=== PATIENT | female | born 1970 | race American Indian/Alaskan Native ===

== ENCOUNTER 2020-02-04 05:45 | Day surgery (SDC) | payer OTHER ==
[2020-01-31 10:45] LABS: Hemoglobin 11.7 gm/dl (11.8-15.2); Mean Corpuscular HGB Conc 33 % (32-34); Mean Corpuscular Volume 83 fl (84-94); Platelet Count 277 K/mm3 (140-440); Red Blood Count 4.32 M/mm3 (3.65-5.03)
[2020-01-31 10:58] LABS: Blood Urea Nitrogen 10 mg/dL (9-20); Calcium 9.2 mg/dL (8.4-10.2); Hemolysis Index 1
[2020-01-31 11:00] LABS: BUN/Creatinine Ratio 17
[2020-02-04] MEDS ORDERED: SCOPOLAMINE TRANSDERMAL PATCH 72 HR TD NR (06:00)
[2020-02-04] MEDS ORDERED: MIDAZOLAM 2 MG/2 ML INJ IV NR (06:00)
[2020-02-04] MEDS ORDERED: ACETAMINOPHEN 500 MG TAB PO SCH (06:00)
[2020-02-04] MEDS ORDERED: LACTATED RINGERS 1,000 ML IV SCH (06:00)
[2020-02-04] MEDS ORDERED: CELECOXIB 200 MG CAP PO NR (06:00)
[2020-02-04] MEDS ORDERED: GABAPENTIN 300 MG CAP PO NR (06:00)
[2020-02-04] MEDS ORDERED: GABAPENTIN 300 MG CAP ONE (06:19)
[2020-02-04] MEDS ORDERED: CELECOXIB 200 MG CAP ONE (06:19)
[2020-02-04] MEDS ORDERED: BACTERIOSTATIC SODIUM CHLORIDE 0.9% 30 ML VIAL INFILTRATI ONE ×2 (06:19→06:20)
[2020-02-04] MEDS ORDERED: fentaNYL 100 MCG/2 ML INJ ONE ×2 (06:19→07:14)
[2020-02-04] MEDS ORDERED: MIDAZOLAM 2 MG/2 ML INJ ONE (06:19)
[2020-02-04] MEDS ORDERED: ACETAMINOPHEN 500 MG TAB ONE (06:19)
[2020-02-04] MEDS ORDERED: cloNIDine/PF 1,000 MCG/10 ML VIAL EP ONE ×2 (06:19→07:13)
[2020-02-04] MEDS ORDERED: LACTATED RINGERS 1000 ML IV SOLN ONE (06:19)
[2020-02-04] MEDS ORDERED: SCOPOLAMINE TRANSDERMAL PATCH 72 HR TD ONE (06:19)
[2020-02-04] MEDS ORDERED: VANCOMYCIN/NS 1 GM/250 ML 1 GM/250 ML BAG IV NR (07:00)
[2020-02-04] MEDS ORDERED: LIDOCAINE (1%) 10 MG/1 ML VIAL 20 ML MDV ONE ×2 (07:04→07:29)
[2020-02-04] MEDS ORDERED: dexAMETHasone 4 MG/ML VIAL ONE (07:04)
[2020-02-04] MEDS ORDERED: BUPIVACAINE-EPINEPHRINE/PF 0.5%-1:200,000 (30 ML) VIAL INFILTRATI ONE (07:04)
[2020-02-04] MEDS ORDERED: BUPIVACAINE/PF (0.5%) 5 MG/1 ML 30 ML VIAL INFILTRATI ONE (07:29)
[2020-02-04] MEDS ORDERED: ROCURONIUM 50 MG/5 ML INJ IV ONE ×2 (07:34→10:38)
[2020-02-04] MEDS ORDERED: LIDOCAINE MPF (2%) 20 MG/1 ML VIAL 5 ML ONE (07:34)
[2020-02-04] MEDS ORDERED: dexAMETHasone 20 MG/5 ML VIAL ONE (07:34)
[2020-02-04] MEDS ORDERED: propofoL 200 MG/20 ML VIAL IV ONE (07:34)
[2020-02-04] MEDS ORDERED: ONDANSETRON 4 MG/2 ML INJ ONE (07:34)
[2020-02-04] MEDS ORDERED: HYDROmorphone 1 MG/1 ML INJ ONE ×2 (07:34→11:58)
[2020-02-04] MEDS ORDERED: WATER FOR IRRIG STERILE 2000 ML IR ONE (09:00)
[2020-02-04] MEDS ORDERED: PHENYLEPHRINE/NS 1,000 MCG/10 ML SYRINGE (OR USE) IV ONE (09:02)
[2020-02-04] MEDS ORDERED: NS IV ONE (10:00)
[2020-02-04] MEDS ORDERED: VANCOMYCIN IV ONE (10:00)
[2020-02-04] MEDS ORDERED: LACTATED RINGERS 1,000 ML ONE (10:43)
[2020-02-04] MEDS ORDERED: NEOSTIGMINE 10MG/10 ML INJ MDV ONE (11:11)
[2020-02-04] MEDS ORDERED: GLYCOPYRROLATE 0.4 MG/2 ML INJ ONE (11:11)
[2020-02-04] MEDS ORDERED: KETOROLAC 30 MG/1 ML INJ ONE (11:54)
[2020-02-04] MEDS ORDERED: oxyCODONE /ACETAMINOPHEN 5-325MG TAB ONE (13:07)
[2020-02-05 15:39] VITALS: BP 136/72
--- NOTE | 2020-02-08 23:49 | Operative Report ---
PREOPERATIVE DIAGNOSIS: Ventral hernia. POSTOPERATIVE DIAGNOSIS: Ventral hernia and umbilical hernia. PROCEDURES: Robotic-assisted lysis of adhesions, repair of ventral and umbilical hernia with mesh. SURGEON: Domenica Mcdonald DO MANAGER OF CASE: MARIA L Niño ANESTHESIA: General endotracheal anesthesia, TAP block. FINDINGS: 1. A 4 x 4 cm epigastric hernia with incarcerated fat. 2. A 1 cm umbilical hernia with incarcerated fat. 3. Total hernia dimensions - 12 cm cephalad to caudad x 4 cm in width repaired with 20 x [address] composite mesh. ESTIMATED BLOOD LOSS: 5 mL. SPECIMEN: Hernia sac and fat. COMPLICATIONS: None. DISPOSITION: Stable to PACU. HISTORY OF PRESENT ILLNESS AND INDICATION: The patient is a 49-year-old female who presented to the surgery clinic with complaints of a bulge in her abdomen above her umbilicus, which was painful at times and limiting her everyday activity. The patient was sent to Cardiology for preoperative risk assessment and evaluation. She underwent the appropriate testing and was cleared for surgery from the Cardiology standpoint. It was recommended that the patient undergo robotic-assisted laparoscopic ventral hernia repair with mesh. All risks, benefits and alternatives to surgery were discussed with the patient and questions answered. Consent was obtained. PROCEDURE IN DETAIL: The patient was identified in the preoperative area and taken back to the operating room and placed on the operating table in supine position. After anesthesia was induced, both arms were tucked and all bony prominences were padded appropriately. The patient was placed in slight reverse jackknife position to extend the torso. The abdomen was prepped and draped in the usual sterile fashion. Timeout was performed. A elsa incision was made in the left upper quadrant through which a Veress needle was inserted. The Veress needle positioning was confirmed using the saline drop test and the abdomen insufflated to 15 mmHg without incident. Once the abdomen was insufflated, a 5 mm right upper quadrant optiview trocar was placed under direct visualization. The abdomen was inspected and there was no underlying injury to any of the abdominal structures. The Veress needle was removed. There were omental adhesions to the anterior abdominal wall in the midline. The patient was then tilted to the left. An additional 12 mm balloon trocar was placed in the right lateral abdomen and the 8 mm robotic trocar in the right lower quadrant. The 5 mm right upper quadrant trocar was removed and replaced with an 8 mm robotic trocar under direct visualization. The robot was then docked. The surgeon was transferred to the console. A fenestrated bipolar grasper was placed in arm #2 and a monopolar scissor in arm #1. I first started by taking down the falciform ligament. This was ligated using the fenestrated bipolar and then dissected from the anterior abdominal wall with a monopolar scissor. The epigastric ventral hernia was seen and that did contain incarcerated preperitoneal fat. A smaller umbilical hernia was also noted. I attempted to create a preperitoneal flap. The peritoneum was scored to the right of the epigastric ventral hernia. Using the monopolar scissors, a preperitoneal flap created. The peritoneum was extremely thin and scarred to the muscle and therefore this could not be completed. Therefore, it was abandoned. I then turned my attention to reducing the fat incarcerated in the hernia. A small incision was made in the peritoneum and the preperitoneal fat was grasped and reduced using a combination of blunt dissection and electrocautery. In this way, the hernia sac was also identified and circumferentially dissected free from the surrounding fascia. The majority of the hernia sac was able to be reduced. A small portion of the sac was scarred to the skin and therefore was transected. The redundant peritoneum and fat was then dissected off the anterior abdominal wall and later removed as a specimen. I then turned my attention to the umbilical hernia. A small amount of preperitoneal fat was also dissected from the hernia and later removed as a specimen. Once incarcerated fat was dissected from the hernias, the total hernia area measured 12 cm in length and 4 cm in width. Therefore, it was decided to use a 20 x [address] composite mesh to repair the defect. Approximately 1 cm was cut from either side of the mesh reducing it with the 13 cm from 15cm. The composite mesh along with suture material was placed into the abdomen by the assistant pastry chef. The intraabdominal pressure was dropped to 8mm Hg. The fascial defects were approximated using a running 0 V-Loc suture. The mesh was then tethered to the anterior abdominal wall using a transfascial 2-0 Vicryl suture that was placed through the center of the mesh using the Hung-Bal device by the assistant pastry chef. The mesh was then positioned appropriately with adequate overlap over the defects. The coated side was facing the bowel. The mesh was sutured into place circumferentially using a running 3-0 V-Loc suture x 2. The mesh was seen to lay flat against the abdominal wall and covering the defect with satisfactory overlap. The robot was then undocked and the surgeon scrubbed back in. The remainder of the case was performed laparoscopically. All sharps and suture material was removed under direct visualization. As mentioned previously, the redundant peritoneum and the incarcerated preperitoneal fat was removed and passed off the table as a specimen. The abdomen was checked for hemostasis, which was very carefully ensured. The 12-mm port was removed and the fascia closed using interrupted 0 Vicryl suture using Hung-Bal device. The remainder of the ports were removed and the abdomen desufflated. The skin incisions were closed with 4-0 Monocryl subcuticular stitches and skin glue. At the end of the case, all sponge, instrument, sharp counts were correct x 2. The patient was awoken from anesthesia, extubated, and taken to PACU in stable condition. JOB# [id number] ALEX/JAMAAL JONAS
== END 2020-02-04 05:46 | disposition home or self-care (01) ==
LOC: OR 05:45 → EDSEX 07:30
PROVIDERS: ATTEND Surgery
DX: K43.6 Other and unspecified ventral hernia with obstruction, without gangrene (principal); K42.0 Umbilical hernia with obstruction, without gangrene; Z20.828 Contact with and (suspected) exposure to other viral communicable diseases; I10 Essential (primary) hypertension; F41.9 Anxiety disorder, unspecified; Z79.899 Other long term (current) drug therapy; Z88.0 Allergy status to penicillin; Z90.49 Acquired absence of other specified parts of digestive tract; Z98.51 Tubal ligation status; Z98.890 Other specified postprocedural states; Z86.2 Personal history of diseases of the blood and blood-forming organs and certain disorders involving the immune mechanism
CPT/HCPCS: 36415; 49653; 80048; 84703; 85027; 88302; A4217; C1781; J0735; J1100; J1170; J1885; J2250; J2370; J2405; J2704; J2710; J3010; J3370; J7120; S2900; U0003; 64450